=== PATIENT | female | born 1960 | race Caucasian/White ===

== ENCOUNTER 2025-05-20 10:51 | Outpatient (CLI) | payer OTHER, SELFPAY ==
--- NOTE | 2025-05-20 11:00 | MM_ITS ---
WS: [id number] Bilateral screening 3D tomosynthesis digital mammogram, 05/20/2025 10:58 AM Clinical Data: SCREENING Comparison: None. Findings: No spiculated masses or clustered calcifications are seen. There are no secondary signs of carcinoma. There are lymph nodes in both axilla. MM/MM scr BI tomosynthesis [id number] Impression: Negative bilateral mammogram with no prior exam for review. Recommend annual screening mammograms. BIRADS: 1 - Negative. FOLLOW UP: 1 Year Follow-up DENSITY: There are scattered areas of fibroglandular density. The CAD checker product design was used
== END 2025-05-20 10:52 | disposition home or self-care (01) ==
PROVIDERS: PCP Family Medicine; Visit Provider Family Medicine
DX: Z12.31 Encounter for screening mammogram for malignant neoplasm of breast (principal); R59.0 Localized enlarged lymph nodes; R92.323 Mammographic fibroglandular density, bilateral breasts
CPT/HCPCS: 77063; 77067